=== PATIENT | female | born 1995 | race Caucasian/White ===

== ENCOUNTER 2017-01-05 22:51 | Inpatient (IN) | payer BC, OTHER ==
[~2017-01-05] VITALS: Ht 152.4 cm; Wt 77.1 kg
[2017-01-05 23:03] VITALS: BP 138/92
[2017-01-06] VITALS (28 sets, daily range): BP systolic 99–135; BP diastolic 56–85
[2017-01-06 01:59] LABS: EOSINOPHIL (%) 0.2 % (0-5); HEMATOCRIT 30.1 % (36.0-46.0); IMMATURE GRANULOCYTE (%) 1.1 % (0.0-0.7); IMMATURE GRANULOCYTE COUNT 0.2 K/uL; INSTRUMENT ABS NEUTROPHIL CT 13.6 K/uL; LYMPHOCYTE COUNT 2.3 K/uL (1.0-2.8); MCH 25.1 PG (29.0-34.0); MCHC 31.6 G/DL (30.0-36.0); MCV 79.4 FL (83-99); MEAN PLAT.VOLUME 11.5 uM^3 (9.5-12.4); MONOCYTE (%) 7.2 % (3-12); MONOCYTE COUNT 1.3 K/uL (0-0.8); NEUTROPHIL COUNT 13.6 K/uL (1.8-6.4); NRBC (%) 0.3 /100 WBC (0-0); PLATELET COUNT 175 K/uL (156-360); RBC DIS.WIDTH-CV 15.9 % (11.8-14.6); RBC DIS.WIDTH-SD 45.6 % (39-53); RED BLOOD COUNT 3.79 M/uL (3.80-5.20); WHITE BLOOD COUNT 17.5 K/uL (4.1-10.2)
[2017-01-06] MEDS ORDERED: ENDOCET 5-3251 EACH PO (22:41)
[2017-01-06] MEDS ORDERED: IBUPROFEN800 MG PO (22:41)
[2017-01-07] VITALS (10 sets, daily range): BP systolic 109–140; BP diastolic 63–82
[2017-01-07 07:46] LABS: EOSINOPHIL (%) 0 % (0-5); HEMATOCRIT 27.5 % (36.0-46.0); IMMATURE GRANULOCYTE (%) 1.1 % (0.0-0.7); IMMATURE GRANULOCYTE COUNT 0.3 K/uL; INSTRUMENT ABS NEUTROPHIL CT 18.8 K/uL; LYMPHOCYTE COUNT 1.7 K/uL (1.0-2.8); MCH 25.1 PG (29.0-34.0); MCHC 31.3 G/DL (30.0-36.0); MCV 80.4 FL (83-99); MONOCYTE (%) 5.4 % (3-12); MONOCYTE COUNT 1.2 K/uL (0-0.8); NEUTROPHIL (%) 85.6 % (45-76); NEUTROPHIL COUNT 18.8 K/uL (1.8-6.4); NRBC (%) 0.1 /100 WBC (0-0); PLATELET COUNT 158 K/uL (156-360); RBC DIS.WIDTH-CV 16.4 % (11.8-14.6); RBC DIS.WIDTH-SD 47.2 % (39-53); RED BLOOD COUNT 3.42 M/uL (3.80-5.20)
[2017-01-08 03:14] VITALS: BP 111/59
[2017-01-08 19:30] VITALS: BP 120/83
[2017-01-08 23:28] VITALS: BP 125/72
[2017-01-09 07:39] VITALS: BP 123/78
[2017-01-09 15:10] VITALS: BP 126/74
[2017-01-10 07:24] VITALS: BP 112/66
[2017-01-10] MEDS ORDERED: FERROUS SULFAT325 MG PO (09:03)
[2017-01-10] MEDS ORDERED: PRENATAL TABLE1 EACH PO (09:03)
== END 2017-01-10 14:15 | disposition home or self-care (01) | DRG 765 ==
LOC: LDRP-OP 22:51 → 2WEST 22:52 → LDRP-OP 02-01 08:42
PROVIDERS: Midwife; Obstetrics & Gynecology
PROC: 3E0R3CZ (ICD-10-PCS; principal; 2017-01-06)
PROC: 10D00Z1 Extraction of Products of Conception, Low, Open Approach (ICD-10-PCS; principal; 2017-01-06)
PROC: 10D17ZZ Extraction of Products of Conception, Retained, Via Natural or Artificial Opening (ICD-10-PCS; principal; 2017-01-06)
PROC: 00HU33Z Insertion of Infusion Device into Spinal Canal, Percutaneous Approach (ICD-10-PCS; principal; 2017-01-06)
DX: O33.9 Maternal care for disproportion, unspecified (principal); O62.1 Secondary uterine inertia; O41.1230 Chorioamnionitis, third trimester, not applicable or unspecified; D50.9 Iron deficiency anemia, unspecified; O90.81 Anemia of the puerperium; O63.1 Prolonged second stage (of labor); O99.214 Obesity complicating childbirth; E66.9 Obesity, unspecified; E66.01 Morbid (severe) obesity due to excess calories; Z68.35 Body mass index [BMI] 35.0-35.9, adult; Z37.0 Single live birth; Z3A.40 40 weeks gestation of pregnancy; O73.0 Retained placenta without hemorrhage
CPT/HCPCS: 85025; 86900; 86901; C1755; G0378; J0595; J1580; J2175; J2274; J2405; J2765; J3010; J7050; J7120